=== PATIENT | male | born 1930 | race Caucasian/White ===

== ENCOUNTER 2018-04-08 09:07 | Emergency (ER) | payer MEDICARE ==
--- OUTSIDE RECORDS SUMMARY | 2018-04-08 09:23 | XMS REPORT ---
:1930 External Reference #:[id number] Author Organization Sincere Metcalf M.D. Address [address] [place] [address] Phone [phone] Care Team Providers Name Role Phone Sincere Metcalf M.D. Care Team Information Alligator Hunter Unavailable Payers Type Date Identification Numbers Payment Provider Subscriber Medicare Primary Effective: Policy Number: Medicare - NGS Tyler Griggs 1995 [id number] Group Name: Medicare [address] PayID: [id number] [place] [address] Medigap Part B Policy Number: [id number] 11 [facility] Danielle Griggs Group Name: [facility] [address] PayID: [id number] [place] [address] Medigap Part B Group Name: Medicare Medicare - [facility] Danielle Griggs PayID: [id number] [address] [place] [address] Advance Directives Type Date Description Status Comment Other Directive 07/21/2014 Advance Directives Current and Verified Problems Date Description Provider Status Onset: 08/28/2011 Atrial fibrillation Ysabel Horton PA Active Onset: 08/28/2011 Spinal stenosis of lumbar region Ysabel Horton PA Active Onset: 08/28/2011 Labyrinthitis Ysabel Horton PA Active Onset: 08/28/2011 Gout Ysabel Horton PA Active Onset: 08/28/2011 Hyperlipidemia Ysabel Horton PA Active Family History Date Family Member(s) Problem(s) Comments General Chronic Obstructive Pulmonary Disease (COPD) General Congestive Heart Failure mother Social History Type Date Description Comments Marital Status Legal Status: Marital Status Legal Status: Lives With Spouse Lives With Alone Work Status Retired ETOH Use Occasionally consumes alcohol Smoking 09/24/2017 Patient is a former smoker Daily Caffeine Rarely Allergies, Adverse Reactions, Alerts Date Description Reaction Status Severity Comments 08/28/2011 Aleve active 08/28/2011 Latex active 10/13/2012 Velcro active Medications Medication Date Status Form Strength Qnty SIG Indications Ordering Provider Levofloxacin 03/31/ Active Tablets 750mg 14tabs one pill L03.90 2017 daily Isidro dawn M.D. Bacitracin 02/24/ Active Ointment 500Unit/GM 30gm use twice Sincere (External) 2017 a day on Felix wound Molly dawn Clotrimazole 11/16/ Active Cream 1% 56gm use three Sincere Anti-Fungal 2018 times a Isidro dawn M.D. Tramadol HCL 10/08/ Active Tablets 50mg 30tabs 2 by M79.1 Sincere 2017 mouth in [facility] the Molly dawn morning with 1 tylenol Spironolactone 09/07/ Active Tablets 100mg 180tab 1 or two R60.0 Sincere 2014 s by by Isidro dawn M.D. every day Colace 04/12/ Active Capsules 100mg 60caps 1 by Sincere 2013 mouth Felix twice a sBogdanDLaisha day Flaxseed Oil 04/12/ Active Capsules 1000mg 90caps 1 daily Sincere 2013 at supper Isidro dawn M.D. Glucosamine 04/12/ Active Capsules 1500Com Sincere Chondroitin 1500 2013 Isidro Complex Maximum Molly dawn Strength Ocuvite Adult 04/12/ Active Capsules Sincere 50+ 2013 Isidro dawn M.D. Xarelto 01/09/ Active Tablets 20mg 30tabs 1 by V58.61 Sincere 2013 mouth Felix every day Molly dawn Atorvastatin 03/28/ Active Tablets 40mg 90tabs take 1 Sincere Calcium 2012 tablet by Isidro dawn M.D. every evening Vitamin D-3 04/02/ Active Tablets 1000Unit 90tabs 1 po qd Sincere 2011 Isidro dawn M.D. Allopurinol / Active Tablets 300mg 90tabs take 1 Sincere tablet by Isidro dawn M.D. once daily Gabapentin / Active Capsules 300mg 120cap 1 tab 4 G25.0 Sincere 0000 s times a Felix day s, M.D. M54.9 M54.17 Primidone Active Tablets 50mg 180tabs take 1 G25.0 Sincere tablet Metcalf, twice a M.D. day Celebrex Active Capsules 200mg 180caps take 1 Sincere capsule Metcalf, by mouth M.D. twice daily with food Cephalexin 02/19/2018 - Hx Tablets 500mg 40tabs 1 by L03.11 Sincere 03/22/2018 mouth 5 Metcalf, four M.D. times a day Clotrimazole 10/27/2016 - Hx Cream 1% 60gm use 3 B35.6 Sincere 09/24/2017 times a Metcalf, day M.D. Amoxicillin 09/23/2016 - Hx Tablets 875mg 20tabs 1 by J02.9 Sincere 09/24/2017 mouth Metcalf, twice a M.D. day Cephalexin 08/06/2016 - Hx Capsules 500mg 30caps 1 by L89.60 Sincere 09/23/2016 mouth 2 Metcalf, three M.D. times a day Silver 08/06/2016 - Hx Cream 1% 50gm use daily L89.60 Sincere Sulfadiazine 09/23/2016 on the 2 Metcalf, wound M.D. Silvadene 10/11/2015 - Hx Cream 1% 1tube use on S90.51 Sincere 09/24/2017 wound 2A Metcalf, daily M.D. Lotrisone 05/24/2015 - Hx Cream 1-0.0 60gm use three 112.3 Sincere 09/07/2015 5% times a Metcalf, day for 2 M.D. weeks Vicodin ES 01/18/2015 - Hx Tablets 7.5-3 40tabs 1 tab by 682.3 Sincere 09/07/2015 00mg mouth Metcalf, every day M.D. q4-6h prn pain Debrox 05/17/2014 - Hx Solution 6.5% 30ml 5 drops 380.4 Sincere 05/26/2014 twice a Metcalf, day x 4 M.D. days in each ear Septra DS 01/18/2014 - Hx Tablets 800-1 20tabs 1 by 682.9 Sincere 02/03/2014 60mg mouth Metcalf, twice a M.D. day Amoxicillin/Clav 01/09/2014 - Hx Tablets 875-1 20tabs 1 by 682.9 Sincere ulanate 01/27/2014 25mg mouth Metcalf, Potassium twice a M.D. day Furosemide 10/13/2012 - Hx Tablets 20mg 30tabs 1 by R60.0 Sincere 09/07/2015 mouth Metcalf, every day M.D. as needed Viagra 04/02/2012 - Hx Tablets 100mg 8tabs take as Sincere 09/24/2017 directed Molly Metcalf Viagra 04/02/2012 - Hx Tablets 100mg 8tabs take as Sincere 09/24/2017 chelsie Metcalf M.D. Pradaxa 03/19/2012 - Hx Capsules 150mg 180caps 1 tab by Sincere 01/09/2014 mouth Metcafl, twice a M.D. day Vicodin 03/19/2012 - Hx Tablets 5-500 30tabs 1 tab by Chrissy2.3 Sincere 01/18/2015 mg mouth Metcalf, every day M.D. q4-6h prn pain Cephalexin 03/19/2012 - Hx Tablets 500mg 40tabs 1 po qid 682.3 Sincere 06/19/2013 Molly Metcalf Warfarin Sodium - Hx Tablets 5mg Unknown 03/19/2012 Spironolactone - Hx Tablets 25mg Unknown 12/11/2014 Colcrys - Hx Tablets 0.6mg 120tabs 1 tab by Sincere 02/11/2016 rene Metcalf, four M.D. times a day as needed Allopurinol - Hx Tablets 100mg Unknown 03/19/2012 Ketoconazole - Hx Cream 2% Unknown 09/24/2017 Propranolol HCL - Hx Tablets 20mg 270tabs take 1 Sincere 05/24/2015 tablet by Dixon mouth M.DLaisha three times a day Lipitor - Hx Tablets 40mg 30tabs one q Sincere 09/24/2017 evening Molly Metcalf Atorvastatin - Hx Tablets 40mg Unknown Calcium 09/24/2017 Cephalexin - Hx Capsules 500mg take 1 Unknown 09/24/2017 capsule twice a day Medications Administered in Office Medication Date Status Form Strength Qnty SIG Indications Ordering Provider Inj. Ceftriaxone 03/31/ Administered Injection Wolak, Sodium Per 250MG 2017 MEGHAN Grady Rocephin Inj. Ceftriaxone 01/27/ Administered Injection Wolak, Sodium Per 250MG 2013 MEGHAN Gradyephin Inj. Ceftriaxone 01/18/ Administered Injection Wolak, Sodium Per 250MG 2013 MEGHAN Grady Rocephin Inj. Ceftriaxone 08/28/ Administered Injection Wolak, Sodium Per 250MG 2007 MEGHAN Grady Rocephin Injection 08/28/ Administered Injection Wolak, Administration 2007 MEGHAN Grady Therapeutic, Proph,Or Diagnosti Subcu/Mu Immunizations CPT Code Status Date Vaccine Reaction Lot # [id number] Given 06/17/2017 Flu High Dose Flu HD syr Vaccine [id number] 13267 Given 06/09/2016 Flu High Dose Vaccine 37251 Given 07/17/2015 Prevnar 13 risk & benefits Prevnar 13 [id number] discussed 72693 Given 05/24/2015 Flu High Dose Hi/dose/flu Vaccine [id number] 63096 Given 05/26/2014 Flu High Dose High/do/Flu Vaccine [id number] 35241 Given 05/17/2014 Tdap Vaccine over 7 yrs old 93726 Given 06/09/2013 Flu High Dose Vaccine 88919 Given 06/09/2013 Flu High Dose High doseflu Vaccine [id number] 45706 Given 03/19/2012 Pneumovax [id number] 59370 Given 06/21/2009 Flu Triv Old Code Vital Signs Date Vital Result Comment 03/31/2018 Weight 250.00 lb BP Systolic 104 mmHg BP Diastolic 68 mmHg Body Temperature 98.9 F 03/22/2018 Weight 248.00 lb BP Systolic 106 mmHg BP Diastolic 62 mmHg 02/24/2018 Weight 253.00 lb BP Systolic 132 mmHg BP Diastolic 76 mmHg Body Temperature 97.3 F Respiratory Rate 16 /min 02/19/2018 Weight 253.00 lb BP Systolic 122 mmHg BP Diastolic 62 mmHg Body Temperature 98.7 F 11/16/2017 Weight 254.00 lb BP Systolic 138 mmHg BP Diastolic 80 mmHg 10/08/2017 Weight 260.00 lb heavy boots BP Systolic 110 mmHg BP Diastolic 62 mmHg 09/24/2017 Weight 260.00 lb BP Systolic 112 mmHg BP Diastolic 64 mmHg 06/17/2017 Weight 265.00 lb BP Systolic 122 mmHg BP Diastolic 72 mmHg Height 71 inches 5'11" Heart Rate 60 /min Respiratory Rate 16 /min BMI (Body Mass Index) 37.0 kg/m2 10/27/2016 Weight 281.00 lb BP Systolic 138 mmHg BP Diastolic 70 mmHg 09/23/2016 Weight 287.00 lb BP Systolic 134 mmHg BP Diastolic 80 mmHg Body Temperature 99.4 F 08/13/2016 BP Systolic 100 mmHg BP Diastolic 68 mmHg 08/06/2016 Weight 285.00 lb BP Systolic 100 mmHg BP Diastolic 66 mmHg 07/24/2016 Weight 285.00 lb BP Systolic 100 mmHg BP Diastolic 62 mmHg 06/09/2016 Weight 285.00 lb BP Systolic 140 mmHg BP Diastolic 68 mmHg 05/28/2016 Weight 285.00 lb BP Systolic 118 mmHg BP Diastolic 58 mmHg Height 72.55 inches 6'0.55" Heart Rate 64 /min Body Temperature 98.2 F O2 % BldC Oximetry 96 % BMI (Body Mass Index) 38.1 kg/m2 05/08/2016 Weight 282.00 lb BP Systolic 116 mmHg BP Diastolic 74 mmHg 05/01/2016 Weight 284.00 lb BP Systolic 110 mmHg BP Diastolic 62 mmHg 04/17/2016 Weight 282.00 lb BP Systolic 102 mmHg BP Diastolic 58 mmHg Body Temperature 99.0 F 02/11/2016 Weight 289.00 lb BP Systolic 116 mmHg BP Diastolic 76 mmHg 11/19/2015 Weight 291.00 lb BP Systolic 118 mmHg BP Diastolic 82 mmHg 10/29/2015 Weight 291.50 lb BP Systolic 110 mmHg BP Diastolic 64 mmHg 10/11/2015 Weight 291.00 lb BP Systolic 98 mmHg BP Diastolic 70 mmHg 09/07/2015 Weight 294.00 lb BP Systolic 102 mmHg BP Diastolic 62 mmHg 08/15/2015 Weight 297.00 lb BP Systolic 128 mmHg BP Diastolic 78 mmHg 05/24/2015 Weight 300.00 lb BP Systolic 100 mmHg BP Diastolic 60 mmHg Height 71 inches 5'11" Heart Rate 68 /min Body Temperature 98.4 F Respiratory Rate 16 /min BMI (Body Mass Index) 41.8 kg/m2 02/19/2015 Weight 314.50 lb BP Systolic 140 mmHg BP Diastolic 82 mmHg 01/18/2015 Weight 311.00 lb BP Systolic 124 mmHg BP Diastolic 74 mmHg 01/01/2015 Weight 311.50 lb BP Systolic 122 mmHg BP Diastolic 72 mmHg 12/11/2014 Weight 309.50 lb BP Systolic 114 mmHg BP Diastolic 80 mmHg 08/31/2014 Weight 307.50 lb BP Systolic 138 mmHg BP Diastolic 72 mmHg 06/01/2014 Weight 307.00 lb BP Systolic 118 mmHg BP Diastolic 76 mmHg 05/26/2014 Weight 305.00 lb BP Systolic 120 mmHg BP Diastolic 78 mmHg 05/17/2014 Weight 305.50 lb BP Systolic 102 mmHg BP Diastolic 68 mmHg Height 71.25 inches 5'11.25" Heart Rate 64 /min Body Temperature 98.2 F Respiratory Rate 16 /min BMI (Body Mass Index) 42.3 kg/m2 05/04/2014 Weight 312.00 lb BP Systolic 120 mmHg BP Diastolic 74 mmHg 04/12/2014 Weight 306.00 lb BP Systolic 106 mmHg BP Diastolic 66 mmHg 01/27/2014 Weight 307.00 lb BP Systolic 124 mmHg BP Diastolic 78 mmHg Body Temperature 98.8 F 01/18/2014 Weight 312.00 lb BP Systolic 124 mmHg BP Diastolic 70 mmHg Body Temperature 98.9 F 01/09/2014 Weight 309.00 lb BP Systolic 120 mmHg BP Diastolic 70 mmHg 01/02/2014 Weight 305.00 lb BP Systolic 124 mmHg BP Diastolic 60 mmHg Body Temperature 99.0 F 10/13/2013 Weight 303.50 lb BP Systolic 108 mmHg BP Diastolic 68 mmHg 05/16/2013 Weight 302.50 lb BP Systolic 100 mmHg BP Diastolic 60 mmHg Height 71.25 inches 5'11.25" Heart Rate 60 /min Body Temperature 97.6 F Respiratory Rate 16 /min BMI (Body Mass Index) 41.9 kg/m2 10/13/2012 Weight 315.00 lb BP Systolic 118 mmHg BP Diastolic 64 mmHg Height 72 inches 6'0" Body Temperature 98.0 F Respiratory Rate 16 /min BMI (Body Mass Index) 42.7 kg/m2 04/02/2012 Weight 308.00 lb BP Systolic 100 mmHg BP Diastolic 60 mmHg 03/19/2012 Weight 303.00 lb BP Systolic 118 mmHg BP Diastolic 76 mmHg 08/28/2011 Weight 304.00 lb BP Systolic 108 mmHg BP Diastolic 64 mmHg Results Test Date Test Result H/L Range Note Basic Metabolic Panel 03/10/2018 Glucose 101 mg/dL 74-106 1 BUN 16 mg/dL 7-18 1 Creatinine 0.9 mg/dL 0.6-1.3 1 Glom Filtration Rate, Estimate >60 mL/min >60 1 If >60 mL/min >60 1, 2 BUN/Creat 17.7 ratio 1 Sodium 140 mmol/L 136-145 1 Potassium 4.3 mmol/L 3.5-5.1 1 Chloride 108 mmol/L High 98-107 1 Carbon Dioxide 26 mmol/L 21-32 1 Anion Gap 6 mEq/L Low 8-16 1 Calcium 8.1 mg/dL Low 8.5-10.1 1 CBS W/Automated Diff 03/10/2018 White Blood Count 5.2 K/uL 3.4-10.5 1 Red Blood Count 3.44 M/uL Low 4.20-5.80 1 Hemoglobin 12.7 gm/dL Low 12.8-17.0 1 Hematocrit 38.1 % 38.0-48.0 1 Mean Cell Volume 110.8 fl High 80.0-96.0 1 Mean Corpuscular HGB 36.9 pg High 27.0-33.0 1 Mean Corpuscular HGB Conc 33.3 g/dL 31.7-36.0 1 Platelet Count 146 K/uL Low 155-360 1 Red Cell Distri Width SD 52.0 fl High 36-51 1 Red Cell Distri Width %CV 13.3 % 11.6-15.8 1 Mean Platelet Volume 9.6 fL 6.6-10.6 1 Neut% 66.3 % 33.0-73.0 1 Lymph % 18.4 % Low 20.0-42.0 1 [place] % 12.8 % High 0.0-10.0 1 Eo% 2.3 % 0.0-6.6 1 Bas% 0.2 % 0.0-1.1 1 Neut# 3.46 K/uL 1.8-7.0 1 Lymph # 0.96 K/uL Low 1.0-4.0 1 [place] # 0.67 K/uL 0.0-0.8 1 Eos # 0.12 K/uL 0.0-0.5 1 Baso # 0.01 K/uL 0.0-0.1 1 Slide Review 03/10/2018 Slide Review . 1, 3 CBS W/Automated Diff 03/09/2018 White Blood Count 6.2 K/uL 3.4-10.5 1 Red Blood Count 3.30 M/uL Low 4.20-5.80 1 Hemoglobin 12.1 gm/dL Low 12.8-17.0 1 Hematocrit 36.6 % Low 38.0-48.0 1 Mean Cell Volume 110.9 fl High 80.0-96.0 1, 4 Mean Corpuscular HGB 36.7 pg High 27.0-33.0 1 Mean Corpuscular HGB Conc 33.1 g/dL 31.7-36.0 1 Platelet Count 147 K/uL Low 155-360 1 Red Cell Distri Width SD 51.7 fl High 36-51 1 Red Cell Distri Width %CV 13.2 % 11.6-15.8 1 Mean Platelet Volume 9.9 fL 6.6-10.6 1 Neut% 68.5 % 33.0-73.0 1 Lymph % 17.0 % Low 20.0-42.0 1 [place] % 12.4 % High 0.0-10.0 1 Eo% 1.8 % 0.0-6.6 1 Bas% 0.3 % 0.0-1.1 1 Neut# 4.24 K/uL 1.8-7.0 1 Lymph # 1.05 K/uL 1.0-4.0 1 [place] # 0.77 K/uL 0.0-0.8 1 Eos # 0.11 K/uL 0.0-0.5 1 Baso # 0.02 K/uL 0.0-0.1 1 Path Review: 03/09/2018 Path Review: INDICATED,SLIDE <SEE NOTE> 1, 5 Differential-WBC 03/09/2018 Total Cells Counted 100 #CELLS 1 Band% 3 % 0-8 1 Neutrophils% 66 % 33-73 1 Lymph% 21 % 20-42 1 Monocyte% 9 % 0-10 1 Eosinophil% 1 % 0-5 1 Platelet Estimate NORMAL 1 Hypochromia 0-1+ 1 Anisocytosis 1+ 1 Macrocytosis 2+ 1 Rouleaux 1+ 1 Differential Comment FEW LRG PLTS SEE <SEE NOTE> 1, 6 Basic Metabolic Panel 03/09/2018 Glucose 98 mg/dL 74-106 1 BUN 15 mg/dL 7-18 1 Creatinine 0.8 mg/dL 0.6-1.3 1 Glom Filtration Rate, Estimate >60 mL/min >60 1 If >60 mL/min >60 1, 7 BUN/Creat 18.7 ratio 1 Sodium 137 mmol/L 136-145 1 Potassium 4.4 mmol/L 3.5-5.1 1 Chloride 106 mmol/L 98-107 1 Carbon Dioxide 24 mmol/L 21-32 1 Anion Gap 7 mEq/L Low 8-16 1 Calcium 8.1 mg/dL Low 8.5-10.1 1 Glycohemoglobin A1c 03/09/2018 Glycohemoglobin (A1c) 5.8 % 4.2-6.3 1, 8 eAG 120 mg/dL 1 Laboratory test 03/08/2018 C-Reactive Protein,Quant < 2.9 mg/L <3.0 9 finding Blood Culture 03/08/2018 Blood Culture Aerobic NO GROWTH: 10, 11 FINAL <SEE NOTE> Blood Culture Anaerobic NO GROWTH: FINAL <SEE NOTE> 10, 12 Laboratory test finding 03/08/2018 Slide Review . 13, 14 Aot Request 03/08/2018 Aot Request Test(s) added 13, 15 Tests to be added: CRP 13 Blood Culture 03/08/2018 Blood Culture Aerobic NO GROWTH: FINAL <SEE NOTE> 16, 17 Blood Culture Anaerobic NO GROWTH: FINAL <SEE NOTE> 16, 18 Ua RFX Micro & Culture II 03/08/2018 Urine Color YELLOW Yellow 19 Urine Clarity CLEAR Clear 19 Urine Glucose - Dipstick NEGATIVE mg/dL Negative 19 Urine Bilirubin - Dipstick NEGATIVE Negative 19 Urine Ketone NEGATIVE mg/dL Negative 19 Urine Specific [place] <=1.005 Low 1.010-1.030 19 Urine Blood NEGATIVE Negative 19 Urine PH 6.5 6.5-7.5 19 Urine Protein - Dipstick NEGATIVE mg/dL Negative 19 Urine Urobilinogen - Dipstick 0.2 E.U./dL 0.2-1.0 19 Urine Nitrite - Dipstick NEGATIVE Negative 19 Urine Leuk Esterase NEGATIVE Negative 19 Source: URINE, CLEAN CAT <SEE NOTE> 19, 20 Protime 03/08/2018 Protime 17.5 seconds High 12.0-14.4 19 Inr 1.4 High 0.9-1.1 19, 21 Lactic Acid 03/08/2018 Lactic Acid 1.3 mmol/L 0.4-1.9 19 Lab Reflex >2.0 for Sepsis? Y 19 Comprehensive Metabolic Panel 03/08/2018 Glucose 86 mg/dL 74-106 19 BUN 21 mg/dL High 7-18 19 Creatinine 1.0 mg/dL 0.6-1.3 19 Glom Filtration Rate, Estimate >60 mL/min >60 19 If >60 mL/min >60 19, 22 BUN/Creat 21.0 ratio 19 Sodium 136 mmol/L 136-145 19 Potassium 4.5 mmol/L 3.5-5.1 19 Chloride 104 mmol/L 98-107 19 Carbon Dioxide 24 mmol/L 21-32 19 Anion Gap 8 mEq/L 8-16 19 Calcium 8.6 mg/dL 8.5-10.1 19 Total Protein 7.2 g/dL 6.4-8.2 19 Albumin 3.5 g/dL 3.4-5.0 19 Globulin 3.7 g/dL 1.9-4.3 19 Alb/Glob 0.9 ratio 19 Bilirubin,Total 0.6 mg/dL 0.2-1.0 19 Sgot/Ast 28 U/L 15-37 19 SGPT/Alt 37 U/L 12-78 19 Alkaline Phosphatase 152 U/L High 45-117 19 Laboratory test finding 03/08/2018 Lipase 177 U/L 56-289 19 CK 69 U/L 39-308 19 NT-proBNP 840.0 pg/mL High <450 19 Troponin-I < 0.015 ng/mL 19, 23 CBS W/Automated Diff 03/08/2018 White Blood Count 6.9 K/uL 3.4-10.5 19 Red Blood Count 3.40 M/uL Low 4.20-5.80 19 Hemoglobin 12.6 gm/dL Low 12.8-17.0 19 Hematocrit 37.4 % Low 38.0-48.0 19 Mean Cell Volume 110.0 fl High 80.0-96.0 19, 24 Mean Corpuscular HGB 37.1 pg High 27.0-33.0 19 Mean Corpuscular HGB Conc 33.7 g/dL 31.7-36.0 19 Platelet Count 148 K/uL Low 155-360 19 Red Cell Distri Width SD 52.4 fl High 36-51 19 Red Cell Distri Width %CV 13.4 % 11.6-15.8 19 Mean Platelet Volume 9.8 fL 6.6-10.6 19 Neut% 72.8 % 33.0-73.0 19 Lymph % 13.3 % Low 20.0-42.0 19 [place] % 12.8 % High 0.0-10.0 19 Eo% 1.0 % 0.0-6.6 19 Bas% 0.1 % 0.0-1.1 19 Neut# 4.99 K/uL 1.8-7.0 19 Lymph # 0.91 K/uL Low 1.0-4.0 19 [place] # 0.88 K/uL High 0.0-0.8 19 Eos # 0.07 K/uL 0.0-0.5 19 Baso # 0.01 K/uL 0.0-0.1 19 Comprehensive Metabolic Panel 06/23/2017 Glucose 124 mg/dL High 74-106 25 BUN 25 mg/dL High 7-18 25 Creatinine 1.1 mg/dL 0.6-1.3 25 Glom Filtration Rate, Estimate >60 mL/min >60 25 If >60 mL/min >60 25, 26 BUN/Creat 22.7 ratio 25 Sodium 140 mmol/L 136-145 25 Potassium 5.0 mmol/L 3.5-5.1 25 Chloride 108 mmol/L High 98-107 25 Carbon Dioxide 28 mmol/L 21-32 25 Anion Gap 4 mEq/L Low 8-16 25 Calcium 8.4 mg/dL Low 8.5-10.1 25 Total Protein 6.9 g/dL 6.4-8.2 25 Albumin 3.4 g/dL 3.4-5.0 25 Globulin 3.5 g/dL 1.9-4.3 25 Alb/Glob 1.0 ratio 25 Bilirubin,Total 0.7 mg/dL 0.2-1.0 25 Sgot/Ast 19 U/L 15-37 25 SGPT/Alt 29 U/L 12-78 25 Alkaline Phosphatase 114 U/L 45-117 25 Microalbumin,Random Urine 06/23/2017 Microalbumin,Urine < 5.0 mg/L < 20.0 25 Laboratory test finding 06/23/2017 TSH Reflex FT4 and/or 1.75 0.30-4.20 25 FT3 uIU/mL Vitamin D,25-Hydroxy 42.6 ng/mL 30.0-100.0 25, 27 CBC 06/23/2017 White Blood Count 4.8 K/uL 3.4-10.5 25 Red Blood Count 3.50 M/uL Low 4.20-5.80 25 Hemoglobin 13.0 gm/dL 12.8-17.0 25 Hematocrit 38.4 % 38.0-48.0 25 Mean Cell Volume 109.7 fl High 80.0-96.0 25 Mean Corpuscular HGB 37.1 pg High 27.0-33.0 25 Mean Corpuscular HGB Conc 33.9 g/dL 31.7-36.0 25 Platelet Count 121 K/uL Low 150-400 25 Red Cell Distri Width %CV 13.6 % 11.6-15.8 25 Mean Platelet Volume 10.1 fL 6.6-10.6 25 LDL Cholesterol Profile 06/23/2017 Cholesterol 116 mg/dL <200 25, 28 Triglycerides 98 mg/dL <150 25, 29 HDL Cholesterol 55 mg/dL >40 25, 30 LDL-Cholesterol 41 mg/dL < 100 25, 31 Glycohemoglobin A1c 10/29/2016 Glycohemoglobin (A1c) 6.1 % 4.2-6.3 32, 33 eAG 128 mg/dL 32 Comprehensive Metabolic Panel 10/29/2016 Glucose 137 mg/dL High 74-106 32 BUN 23 mg/dL High 7-18 32 Creatinine 1.1 mg/dL 0.6-1.3 32 Glom Filtration Rate, Estimate >60 mL/min >60 32 If >60 mL/min >60 32, 34 BUN/Creat 20.9 ratio 32 Sodium 138 mmol/L 136-145 32 Potassium 4.9 mmol/L 3.5-5.1 32 Chloride 104 mmol/L 98-107 32 Carbon Dioxide 26 mmol/L 21-32 32 Anion Gap 8 mEq/L 8-16 32 Calcium 8.5 mg/dL 8.5-10.1 32 Total Protein 7.4 g/dL 6.4-8.2 32 Albumin 3.5 g/dL 3.4-5.0 32 Globulin 3.9 g/dL 1.9-4.3 32 Alb/Glob 0.9 ratio 32 Bilirubin,Total 0.6 mg/dL 0.2-1.0 32 Sgot/Ast 26 U/L 15-37 32 SGPT/Alt 41 U/L 12-78 32 Alkaline Phosphatase 117 U/L 45-117 32 Microalbumin,Random Urine 10/29/2016 Microalbumin,Urine < 5.0 mg/L < 20.0 32 Laboratory test finding 09/23/2016 Throat Culture SEE RESULT 35, 36 BELOW Prostate Specific Antigen 07/07/2016 PSA ([place]oci) 12.90 ng/mL < 4.0 37, 38 @[facility] Pat Id: [id number] @[facility] Req #: [id number] 37 CBC 06/06/2016 White Blood Count 5.1 K/uL 3.4-10.5 39 Red Blood Count 3.62 M/uL Low 4.20-5.80 39 Hemoglobin 13.0 gm/dL 12.8-17.0 39 Hematocrit 39.1 % 38.0-48.0 39 Mean Cell Volume 108.0 fl High 80.0-96.0 39 Mean Corpuscular HGB 35.9 pg High 27.0-33.0 39 Mean Corpuscular HGB Conc 33.2 g/dL 31.7-36.0 39 Platelet Count 121 K/uL Low 150-400 39 Red Cell Distri Width %CV 13.7 % 11.6-15.8 39 Mean Platelet Volume 10.3 fL 6.6-10.6 39 @[facility] Pat Id: [id number] 39 @[facility] Req #: [id number] 39 Basic Metabolic Panel 06/06/2016 Glucose 128 mg/dL High 74-106 39 BUN 19 mg/dL High 7-18 39 Creatinine 0.9 mg/dL 0.6-1.3 39 Glom Filtration Rate, Estimate >60 mL/min >60 39 If >60 mL/min >60 39, 40 BUN/Creat 21.1 ratio 39 Sodium 140 mmol/L 136-145 39 Potassium 4.1 mmol/L 3.5-5.1 39 Chloride 106 mmol/L 98-107 39 Carbon Dioxide 28 mmol/L 21-32 39 Anion Gap 6 mEq/L Low 8-16 39 Calcium 8.0 mg/dL Low 8.5-10.1 39 @[facility] Pat Id: [id number] 39 @[facility] Req #: [id number] 39 Is Patient Fasting? Fasting 39 LDL Cholesterol Profile 06/06/2016 Cholesterol 142 mg/dL <200 39, 41 Triglycerides 111 mg/dL <150 39, 42 HDL Cholesterol 51 mg/dL >40 39, 43 LDL-Cholesterol 69 mg/dL < 100 39, 44 @[facility] Pat Id: [id number] 39 @[facility] Req #: [id number] 39 Is Patient Fasting? Fasting 39 Prostate Specific Antigen 06/06/2016 PSA ([place]oci) 13.10 ng/mL < 4.0 39, 45 @[facility] Id: [id number] 39 @[facility] Req #: [id number] 39 Is Patient Fasting? Fasting 39 Laboratory test finding 02/12/2016 Calcium,Ionized 4.9 mg/dL 4.5-5.6 46 Uric Acid 4.5 mg/dL 3.5-7.2 Glycohemoglobin A1c 02/12/2016 Glycohemoglobin (A1c) 6.1 % 4.2-6.3 47 eAG 128 mg/dL Basic Metabolic Panel 02/12/2016 Glucose 123 mg/dL High 74-106 BUN 18 mg/dL 7-18 Creatinine 0.9 mg/dL 0.6-1.3 Glom Filtration Rate, Estimate >60 mL/min >60 If >60 mL/min >60 48 BUN/Creat 20.0 ratio Sodium 140 mmol/L 136-145 Potassium 4.5 mmol/L 3.5-5.1 Chloride 105 mmol/L 98-107 Carbon Dioxide 28 mmol/L 21-32 Anion Gap 7 mEq/L Low 8-16 Calcium 8.2 mg/dL Low 8.5-10.1 Laboratory test finding 11/24/2015 Calcium,Ionized 5.0 mg/dL 4.5-5.6 49 Urine Screen 11/21/2015 Urine Color YELLOW Yellow Urine Clarity CLEAR Clear Urine Glucose - Dipstick NEGATIVE mg/dL Negative Urine Bilirubin - Dipstick NEGATIVE Negative Urine Ketone NEGATIVE mg/dL Negative Urine Specific [place] 1.010 1.010-1.030 Urine Blood NEGATIVE Negative Urine PH 6.0 Low 6.5-7.5 Urine Protein - Dipstick NEGATIVE mg/dL Negative Urine Urobilinogen - Dipstick 0.2 E.U./dL 0.2-1.0 Urine Nitrite - Dipstick NEGATIVE Negative Urine Leuk Esterase NEGATIVE Negative Comprehensive Metabolic Panel 11/21/2015 Basic Metabolic Panel <pending> Glucose 113 mg/dL High 74-106 BUN 24 mg/dL High 7-18 Creatinine 0.9 mg/dL 0.6-1.3 Glom Filtration Rate, Estimate >60 mL/min >60 If >60 mL/min >60 50 BUN/Creat 26.6 ratio Sodium 139 mmol/L 136-145 Potassium 4.4 mmol/L 3.5-5.1 Chloride 106 mmol/L 98-107 Carbon Dioxide 28 mmol/L 21-32 Anion Gap 5 mEq/L Low 8-16 Calcium 7.7 mg/dL Low 8.5-10.1 Total Protein 7.2 g/dL 6.4-8.2 Albumin 3.7 g/dL 3.4-5.0 Globulin 3.5 g/dL 1.9-4.3 Alb/Glob 1.1 ratio Bilirubin,Total 0.5 mg/dL 0.2-1.0 Sgot/Ast 26 U/L 15-37 SGPT/Alt 46 U/L 12-78 Alkaline Phosphatase 114 U/L 45-117 Laboratory test finding 11/21/2015 Lipase 115 U/L 73-393 CBC 11/21/2015 White Blood Count 5.3 K/uL 3.4-10.5 Red Blood Count 3.83 M/uL Low 4.20-5.80 Hemoglobin 14.2 gm/dL 12.8-17.0 Hematocrit 39.9 % 38.0-48.0 Mean Cell Volume 104.2 fl High 80.0-96.0 Mean Corpuscular HGB 37.1 pg High 27.0-33.0 Mean Corpuscular HGB Conc 35.6 g/dL 31.7-36.0 Platelet Count 118 K/uL Low 150-400 Red Cell Distri Width %CV 14.0 % 11.6-15.8 Mean Platelet Volume 10.7 fL High 6.6-10.6 Basic Metabolic Panel 11/19/2015 Sodium 138 mmol/L 133-145 Potassium 4.6 mmol/L 3.5-5.0 Chloride 104 mmol/L 101-111 Co2 Carbon Dioxide 27 mmol/L 22-32 Anion Gap 7 mmol/L 2-11 Glucose 117 mg/dL High 70-100 Blood Urea Nitrogen 21 mg/dL 6-24 Creatinine 0.91 mg/dL 0.67-1.17 BUN/Creatinine Ratio 23.1 High 8-20 Calcium 8.9 mg/dL 8.6-10.3 Egfr Non- 79.0 >60 Egfr 101.6 >60 51 Laboratory test finding 11/19/2015 Magnesium 2.0 mg/dL 1.9-2.7 Laboratory test finding 08/17/2015 Uric Acid 4.4 mg/dL 3.5-7.2 CBS W/Automated Diff 08/17/2015 White Blood Count 6.6 K/uL 3.4-10.5 Red Blood Count 3.92 M/uL Low 4.20-5.80 Hemoglobin 14.4 gm/dL 12.8-17.0 Hematocrit 41.5 % 38.0-48.0 Mean Cell Volume 105.9 fl High 80.0-96.0 Mean Corpuscular HGB 36.7 pg High 27.0-33.0 Mean Corpuscular HGB Conc 34.7 g/dL 31.7-36.0 Platelet Count 120 K/uL Low 150-400 Red Cell Distri Width SD 51.2 fl High 36-51 Red Cell Distri Width %CV 13.5 % 11.6-15.8 Mean Platelet Volume 10.8 fL High 6.6-10.6 Neut% 62.8 % 33.0-73.0 Lymph % 22.4 % 17.0-56.0 [place] % 12.8 % High 0.0-10.0 Eo% 1.7 % 0.0-5.0 Bas% 0.3 % 0.1-1.0 Neut# 4.13 K/uL 1.8-7.0 Lymph # 1.47 K/uL Low 1.8-7.0 [place] # 0.84 K/uL High 0.0-0.8 Eos # 0.11 K/uL 0.0-0.5 Baso # 0.02 K/uL Low 0.1-0.2 Laboratory test finding 08/17/2015 Sedimentation Rate 7 mm/hr 0-20 Comprehensive Metabolic Panel 12/05/2014 Glucose 132 mg/dL High 74-106 BUN 15 mg/dL 7-18 Creatinine 0.9 mg/dL 0.6-1.3 Glom Filtration Rate, Estimate >60 mL/min >60 If >60 mL/min >60 52 BUN/Creat 16.6 ratio Sodium 141 mmol/L 136-145 Potassium 4.6 mmol/L 3.5-5.1 Chloride 105 mmol/L 98-107 Carbon Dioxide 31 mmol/L 21-32 Anion Gap 5 mEq/L Low 8-16 Calcium 8.5 mg/dL 8.5-10.1 Total Protein 7.0 g/dL 6.4-8.2 Albumin 3.6 g/dL 3.4-5.0 Globulin 3.4 g/dL 1.9-4.3 Alb/Glob 1.1 ratio Bilirubin,Total 0.6 mg/dL 0.2-1.0 Sgot/Ast 28 U/L 15-37 SGPT/Alt 41 U/L 12-78 Alkaline Phosphatase 126 U/L High 45-117 Laboratory test finding 12/05/2014 Troponin-I < 0.015 ng/mL 53 CBC W/Automated Diff 12/05/2014 White Blood Count 6.7 K/uL 3.4-10.5 Red Blood Count 3.97 M/uL Low 4.20-5.80 Hemoglobin 14.1 gm/dL 12.8-17.0 Hematocrit 42.4 % 38.0-48.0 Mean Cell Volume 106.8 fl High 80.0-96.0 Mean Corpuscular HGB 35.5 pg High 27.0-33.0 Mean Corpuscular HGB Conc 33.3 g/dL 31.7-36.0 Platelet Count 140 K/uL Low 150-400 Red Cell Distri Width SD 51.9 fl High 36-51 Red Cell Distri Width %CV 13.7 % 11.6-15.8 Mean Platelet Volume 10.5 fL 6.6-10.6 Neut# 4.24 K/uL 1.8-7.0 Lymph # 1.54 K/uL Low 1.8-7.0 [place] # 0.77 K/uL 0.0-0.8 Eos # 0.09 K/uL 0.0-0.5 Baso # 0.02 K/uL Low 0.1-0.2 Differential-WBC Confirm 12/05/2014 Total Cells Counted 100 #CELLS Band% 3 % 0-8 Neutrophils% 60 % 33-73 Lymph% 25 % 17-56 Atypical Lymph% 2 % 0-7 Monocyte% 10 % 0-10 Platelet Estimate NORMAL Anisocytosis 0-1+ Macrocytosis 2+ Differential Comment See Note 54 Laboratory test finding 12/05/2014 Urine Screen See Note 55 Laboratory test finding 06/01/2014 Skin Biopsy See Note 56 Laboratory test finding 05/04/2014 Sedimentation Rate 17 mm/hr 0-20 Uric Acid 3.9 mg/dL 2.1-7.4 Glycohemoglobin A1c 05/04/2014 Glycohemoglobin (A1c) 6.6 % High 4.8-6.0 57 eAG 143 mg/dL Laboratory test finding 05/04/2014 Deoxycortisol,11 0.04 g/dL . 58 Basic Metabolic Panel 01/31/2014 Glucose 137 mg/dL High 76-115 BUN 15 mg/dL 5-23 Creatinine 0.9 mg/dL 0.5-1.4 Glom Filtration Rate, Estimate >60 mL/min >60 If >60 mL/min >60 59 BUN/Creat 16.6 ratio Sodium 141 mmol/L 136-145 Potassium 4.5 mmol/L 3.5-5.1 Chloride 106 mmol/L 98-107 Carbon Dioxide 27 mEq/L 18-29 Anion Gap 13 mEq/L 8-16 Calcium 8.5 mg/dL 8.5-10.1 CBC/Manual Differential 01/31/2014 White Blood Count 4.8 K/uL 3.4-10.5 Red Blood Count 3.66 M/uL Low 4.20-5.80 Hemoglobin 13.2 gm/dL 12.8-17.0 Hematocrit 39.1 % 38.0-48.0 Mean Cell Volume 106.8 fl High 80.0-96.0 Mean Corpuscular HGB 36.1 pg High 27.0-33.0 Mean Corpuscular HGB Conc 33.8 g/dL 31.7-36.0 Platelet Count 125 K/uL Low 150-400 Red Cell Distri Width %CV 14.1 % 11.6-15.8 Mean Platelet Volume 10.5 fL 6.6-10.6 Total Cells Counted 100 #CELLS Neutrophils% 49 % 33-73 Lymph% 31 % 17-56 Platelet Estimate SLIGHT DECREASE Band% 4 % 0-8 Monocyte% 14 % High 0-10 Basophil% 2 % 0-2 Polychromasia 0-1+ Macrocytosis 1+ Laboratory test finding 01/31/2014 Sedimentation Rate 23 mm/hr High 0-20 Uric Acid 4.0 mg/dL 2.1-7.4 Laboratory test finding 01/02/2014 Urine Culture See Note 60 CBS W/Automated Diff 05/24/2013 White Blood Count 6.3 K/uL 3.4-10.5 Red Blood Count 3.87 M/uL Low 4.20-5.80 Hemoglobin 14.0 gm/dL 12.8-17.0 Hematocrit 40.7 % 38.0-48.0 Mean Cell Volume 105.2 fl High 80.0-96.0 Mean Corpuscular HGB 36.2 pg High 27.0-33.0 Mean Corpuscular HGB Conc 34.4 g/dL 31.7-36.0 Platelet Count 122 K/uL Low 150-400 Red Cell Distri Width SD 52.4 fl High 36-51 Red Cell Distri Width %CV 13.7 % 11.6-15.8 Mean Platelet Volume 10.4 fL 6.6-10.6 Comprehensive Metabolic Panel 05/24/2013 Glucose 136 mg/dL High 76-115 BUN 15 mg/dL 5-23 Creatinine 1.0 mg/dL 0.5-1.4 Glom Filtration Rate, Estimate >60 mL/min >60 If >60 mL/min >60 61 BUN/Creat 15.0 ratio Sodium 141 mmol/L 136-145 Potassium 4.2 mmol/L 3.5-5.1 Chloride 104 mmol/L 98-107 Carbon Dioxide 30 mEq/L High 18-29 Anion Gap 11 mEq/L 8-16 Calcium 8.8 mg/dL 8.5-10.1 Total Protein 7.0 g/dL 6.3-8.0 Albumin 3.5 g/dL 3.5-5.0 Globulin 3.5 g/dL 1.9-4.3 Alb/Glob 1.0 ratio Bilirubin,Total 0.8 mg/dL 0.2-1.2 Sgot/Ast 26 U/L 16-40 SGPT/Alt 38 U/L 30-65 Alkaline Phosphatase 127 U/L 50-136 LDL Cholesterol Profile 05/24/2013 Cholesterol 127 mg/dL 120-200 Triglycerides 91 mg/dL 16-231 HDL Cholesterol 48 mg/dL 29-83 LDL-Cholesterol 61 mg/dL Low 62-185 Liver Function Tests 05/24/2013 Total Protein 7.0 g/dL 6.3-8.0 Albumin 3.5 g/dL 3.5-5.0 Globulin 3.5 g/dL 1.9-4.3 Alb/Glob 1.0 ratio Bilirubin,Total 0.8 mg/dL 0.2-1.2 Bilirubin,Direct 0.2 mg/dL 0.1-0.4 Bilirubin,Indirect 0.6 mg/dL 0.0-0.9 Sgot/Ast 26 U/L 16-40 SGPT/Alt 38 U/L 30-65 Alkaline Phosphatase 127 U/L 50-136 Differential-WBC Confirm 05/24/2013 Total Cells Counted 100 #CELLS Promyelocyte% 1 % High -0 Band% 15 % High 0-8 Neutrophils% 56 % 33-73 Lymph% 16 % Low 17-56 Monocyte% 8 % 0-10 Eosinophil% 4 % 0-5 Platelet Estimate SLIGHT DECREASE Macrocytosis 1+ Comprehensive Metabolic Panel 07/23/2012 Glucose 126 mg/dL High 76-115 BUN 18 mg/dL 5-23 Creatinine 0.9 mg/dL 0.5-1.4 Glom Filtration Rate, Estimate >60 mL/min >60 If >60 mL/min >60 62 BUN/Creat 20.0 ratio Sodium 140 mmol/L 136-145 Potassium 4.2 mmol/L 3.5-5.1 Chloride 106 mmol/L 98-107 Carbon Dioxide 25 mEq/L 18-29 Anion Gap 13 mEq/L 8-16 Calcium 8.4 mg/dL Low 8.5-10.1 Total Protein 7.0 g/dL 6.3-8.0 Albumin 3.5 g/dL 3.5-5.0 Globulin 3.5 g/dL 1.9-4.3 Alb/Glob 1.0 ratio Bilirubin,Total 0.8 mg/dL 0.2-1.2 Sgot/Ast 77 U/L High 16-40 SGPT/Alt 63 U/L 30-65 Alkaline Phosphatase 112 U/L 50-136 Laboratory test finding 07/23/2012 CK 114 U/L 26-190 NT-proBNP 1177.0 pg/mL High <650.0 63 Troponin-I 0.02 ng/mL 0.00-0.50 64 CBS W/Automated Diff 07/23/2012 White Blood Count 6.2 K/uL 3.4-10.5 Red Blood Count 3.60 M/uL Low 4.20-5.80 Hemoglobin 12.8 gm/dL 12.8-17.0 Hematocrit 38.5 % 38.0-48.0 Mean Cell Volume 106.9 fl High 80.0-96.0 Mean Corpuscular HGB 35.6 pg High 27.0-33.0 Mean Corpuscular HGB Conc 33.2 g/dL 31.7-36.0 Platelet Count 112 K/uL Low 150-400 Red Cell Distri Width SD 54.9 fl High 36-51 Red Cell Distri Width %CV 14.4 % 11.6-15.8 Mean Platelet Volume 10.5 fL 6.6-10.6 Differential-WBC Confirm 07/23/2012 Total Cells Counted 100 #CELLS Metamyelocyte% 1 % High -0 Neutrophils% 59 % 33-73 Lymph% 24 % 17-56 Atypical Lymph% 2 % 0-7 Monocyte% 11 % High 0-10 Eosinophil% 2 % 0-5 Basophil% 1 % 0-2 Platelet Estimate SLIGHT DECREASE Anisocytosis 1+ Macrocytosis 0-1+ Rouleaux 0-1+ Comp Metabolic Panel 05/25/2012 Sodium 137 mmol/L 135-145 Potassium 4.4 mmol/L 3.5-5.0 Chloride 101 mmol/L 101-111 Co2 (Carbon Dioxide) 31.0 mmol/L 22-32 Anion Gap 5.0 mmol/L 2-11 65 Glucose 153 mg/dL High 70-100 BUN 14 mg/dL 6-24 Creatinine 0.9 mg/dL 0.50-1.40 One Over Creatinine 1.11 BUN/Creatinine Ratio 15.6 8-20 Calcium 8.6 mg/dL 8.1-9.9 Total Protein 6.0 GM/DL Low 6.2-8.1 Albumin 3.6 GM/DL 3.2-5.2 Globulin 2.4 GM/DL 2-4 Albumin/Globulin Ratio 1.5 1-3 Bilirubin Total 0.8 mg/dL 0.4-1.5 66 Alkaline Phosphatase 101 U/L 39-117 Alt (SGPT) 31 U/L 17-63 Ast (Sgot) 24 U/L 12-42 eGFR Non- 80.8 > 60 eGFR 103.9 > 60 67 Lipid Profile (Trig/Chol/HDL) 05/25/2012 Triglyceride 91 mg/dL 40-200 Cholesterol 122 mg/dL Less Than 200 68 High Density Lipoprotein 43 mg/dL 40-60 69 Cholesterol/HDL Ratio 2.84 AVERAGE 1-4.97 Low Density Lipoprotein 61 mg/dL Less Than 100 70 Laboratory test finding 05/25/2012 Uric Acid 5.6 mg/dL 2.6-7.2 CPK (Creatine Kinase) 93 U/L 0-200 TSH 1.78 MIU/ML 0.34-5.60 Testosterone Total 445.7 ng/dL 175-781 71 CBC Auto Diff 05/25/2012 White Blood Count 5.2 CUMM 4.8-10.8 Red Cell Count 3.60 CUMM Low 4.6-6.2 Hemoglobin 13.3 g/dL Low 14.0-18.0 Hematocrit 38 % Low 42-52 Mean Corpuscular Volume 106 um3 High 80-94 72 Mean Corpuscular Hemoglob 37 pg High 27-31 Mean Corpuscular HGB Cone 35 g/dL 32-36 Redcell Distribution WDTH 14 % 10.5-15 Platelet Count 117 CUMM Low 150-450 Mean Platelet Volume 9.1 um3 7.4-10.4 Gran % 64.3 % 38-83 Lymph % 22.1 % 20-45 Mononuclear % 9.6 % High 1-9 Eosinophil % 3.3 % 0-6 Basophil % 0.7 % 0-2 Abs Lymphs 1.1 1.0-4.8 Abs Mononuclear 0.5 0-0.8 Absolute Neutrophil Count 3.3 1.5-7.7 Abs Eosinophils 0.2 0-0.6 Abs Basophils 0 0-0.2 Laboratory test 05/25/2012 Hemoglobin A1c 6.4 % High Less Than 6.0 73 finding Laboratory test 05/25/2012 Vitamin D, 1,25 25 pg/mL 18-64 74 finding Dihydroxy Vitamin D, 25 Hydroxy 05/25/2012 25-Hydroxy Vitamin <4.0 ng/mL () D2 25-Hydroxy Vitamin D3 29 ng/mL () 25-Hydroxy Vitamin D Total 29 ng/mL () 75 RBC Morphology 05/25/2012 Anisocytosis SLIGHT Macrocytosis SLIGHT CBC W/Automated Diff 03/14/2012 White Blood Count 7.0 K/uL 3.4-10.5 Red Blood Count 4.02 M/uL Low 4.20-5.80 Hemoglobin 14.5 gm/dL 12.8-17.0 Hematocrit 42.8 % 38.0-48.0 Mean Cell Volume 106.5 fl High 80.0-96.0 Mean Corpuscular HGB 36.1 pg High 27.0-33.0 Mean Corpuscular HGB Conc 33.9 g/dL 31.7-36.0 Platelet Count 127 K/uL Low 150-400 Red Cell Distri Width SD 55.6 fl High 36-51 Red Cell Distri Width %CV 14.2 % 11.6-15.8 Mean Platelet Volume 10.2 fL 6.6-10.6 Neut% 65.4 % 33.0-73.0 Lymph % 19.4 % 17.0-56.0 [place] % 12.4 % High 0.0-10.0 Eo% 2.4 % 0.0-5.0 Bas% 0.4 % 0.1-1.0 Neut# 4.59 K/uL 1.8-7.0 Lymph # 1.36 K/uL 1.2-4.0 [place] # 0.87 K/uL High 0.0-0.6 Eos # 0.17 K/uL 0.0-0.5 Baso # 0.03 K/uL Low 0.1-0.2 Laboratory test finding 03/14/2012 Uric Acid 4.5 mg/dL 2.1-7.4 Basic Metabolic Panel 03/14/2012 Glucose 106 mg/dL 76-115 BUN 20 mg/dL 5-23 Creatinine 1.0 mg/dL 0.5-1.4 Glom Filtration Rate, Estimate >60 mL/min >60 If >60 mL/min >60 76 BUN/Creat 20.0 ratio Sodium 140 mmol/L 136-145 Potassium 4.7 mmol/L 3.5-5.1 Chloride 106 mmol/L 98-107 Carbon Dioxide 28 mEq/L 18-29 Anion Gap 11 mEq/L 8-16 Calcium 8.5 mg/dL 8.5-10.1 Urine Screen 09/10/2011 Urine Color STRAW Yellow Urine Clarity CLEAR Clear Urine Glucose - Dipstick NEGATIVE mg/dL Negative Urine Bilirubin - Dipstick NEGATIVE Negative Urine Ketone NEGATIVE mg/dL Negative Urine Specific [place] 1.010 1.010-1.030 Urine Blood NEGATIVE Negative Urine PH 6.5 6.5-7.5 Urine Protein - Dipstick NEGATIVE mg/dL Negative Urine Urobilinogen - Dipstick 0.2 E.U./dL 0.2-1.0 Urine Nitrite - Dipstick NEGATIVE Negative Urine Leuk Esterase NEGATIVE Negative CBC 09/10/2011 White Blood Count 6.9 K/uL 3.4-10.5 Red Blood Count 3.96 M/uL Low 4.20-5.80 Hemoglobin 14.0 gm/dL 12.8-17.0 Hematocrit 40.6 % 38.0-48.0 Mean Cell Volume 102.5 fl High 80.0-96.0 Mean Corpuscular HGB 35.4 pg High 27.0-33.0 Mean Corpuscular HGB Conc 34.5 g/dL 31.7-36.0 Platelet Count 162 K/uL 150-400 Red Cell Distri Width %CV 14.2 % 11.6-15.8 Mean Platelet Volume 10.5 fL 6.6-10.6 Basic Metabolic Panel 09/10/2011 Glucose 117 mg/dL High 76-115 BUN 19 mg/dL 5-23 Creatinine 1.0 mg/dL 0.5-1.4 Glom Filtration Rate, Estimate >60 mL/min >60 If >60 mL/min >60 77 BUN/Creat 19.0 ratio Sodium 138 mmol/L 136-145 Potassium 4.4 mmol/L 3.5-5.1 Chloride 105 mmol/L 98-107 Carbon Dioxide 25 mEq/L 18-29 Anion Gap 12 mEq/L 8-16 Calcium 8.8 mg/dL 8.5-10.1 1 CELLULITIS 2 Note: Persistent reduction for 3 months or more in an eGFR <60 mL/min/1.73 m2 defines CKD. Patients with eGFR values >/=60 mL/min/1.73 m2 may also have CKD if evidence of persistent proteinuria is present. The original MDRD equation for estimated GFR is not valid for patients less than 18 years of age. Additional information may be found at www.kdoqi.org. 3 Instrument flagged sample for slide review. Less than 10% Bands seen, no other immature WBC's seen. RBC morphology essentially normal. Platelet estimate=NORMAL 4 Results consistent with previous results 5 INDICATED,SLIDE SENT Hematology Consultation Final Report Case# [id number] Final Diagnosis Peripheral blood smear: -Red blood cells show macrocytosis. -Platelets are within normal limits. -White blood cells are within normal limits. -No blasts or dysplastic granulocytes are identified. -Clinical correlation is suggested to rule out liver disease, alcoholism, and deficiency of folate or vitamin B12. GY 03/09/18 Gross Description Peripheral blood smear GANG SHMUEL,MD, Pathologist Reported 03/09/2018 at 11:06PM, Report electronically signed Performed at: [facility] [id number] [place] [address] 6 FEW LRG PLTS SEEN 7 Note: Persistent reduction for 3 months or more in an eGFR <60 mL/min/1.73 m2 defines CKD. Patients with eGFR values >/=60 mL/min/1.73 m2 may also have CKD if evidence of persistent proteinuria is present. The original MDRD equation for estimated GFR is not valid for patients less than 18 years of age. Additional information may be found at www.[email or web address]. 8 Elevated levels of HbA1c suggest the need for more aggressive treatment of glycemia. The [place] [employer] recommends that a primary goal of therapy should be a HbA1c of <7% and that physicians should re-evaluate the treatment regimen in patients with HbA1c values consistently >8%. 9 FALL LAST NIGHT, DIZZY, WOUND CARE ON LEGS 10 CELLULITIS 11 NO GROWTH: FINAL REPORT 12 NO GROWTH: FINAL REPORT 13 FALL LAST NIGHT, DIZZY, WOUND CARE ON LEGS 14 Instrument flagged sample for slide review. Less than 10% Bands seen, no other immature WBC's seen. RBC morphology essentially normal. Platelet estimate=NORMAL 15 Tests: CRP Instructions: 16 CELLULITIS 17 NO GROWTH: FINAL REPORT 18 NO GROWTH: FINAL REPORT 19 FALL LAST NIGHT, DIZZY, WOUND CARE ON LEGS 20 URINE, CLEAN CATCH 21 THERAPEUTIC INR RANGE: 2.0 - 3.0 DVT, Pulmonary embolus, prophylaxis against venous thrombosis or systemic embolization in high risk patients. 2.5 - 3.5 Mechanical heart valves 22 Note: Persistent reduction for 3 months or more in an eGFR <60 mL/min/1.73 m2 defines CKD. Patients with eGFR values >/=60 mL/min/1.73 m2 may also have CKD if evidence of persistent proteinuria is present. The original MDRD equation for estimated GFR is not valid for patients less than 18 years of age. Additional information may be found at www.kdoqi.org. 23 0.0 - 0.045 ng/mL: Normal 0.046 - 0.5 ng/mL: Suggestive 0.6 - 1.5 ng/mL: Consistent 24 RESULTS REPEATED 25 R73.03; Z68.37; Z00.01 26 Note: Persistent reduction for 3 months or more in an eGFR <60 mL/min/1.73 m2 defines CKD. Patients with eGFR values >/=60 mL/min/1.73 m2 may also have CKD if evidence of persistent proteinuria is present. The original MDRD equation for estimated GFR is not valid for patients less than 18 years of age. Additional information may be found at www.kdoqi.org. 27 Vitamin D deficiency has been defined by the [place] [employer] and an Endocrine Society practice guideline as a level of serum 25-OH vitamin D less than 20 ng/mL (1,2). The Endocrine Society went on to further define vitamin D insufficiency as a level between 21 and 29 ng/mL (2). 1. IOM ([place] [employer]). 2010. Dietary reference intakes for calcium and D. [place]: The National Academies Press. 2. Jessica MF, Jesus DUNN, Suzanne ORR, et al. Evaluation, treatment, and prevention of vitamin D deficiency: an Endocrine Society clinical practice guideline. JCEM. 2010; 96(7):1911-30. Performed at: RN - [facility] [address] [id number] Behavioral Health Counselor: Jacque Sotelo MD, Phone: [phone] 28 Reference Guidelines*: Desirable: ........... < 200 mg/dL Borderline High: ..... 200-239 mg/dL High: ................ >=240 mg/dL * The National Cholesterol Education Program (NCEP) 29 Reference Guidelines*: Normal: ............. < 150 mg/dL Borderline High: .... 150-199 mg/dL High: ............... 200-499 mg/dL Very High: .......... > 500 mg/dL * Source: National Cholesterol Education Program (NCEP) 30 Reference Guidelines*: Low HDL: ..... < 40 mg/dL Normal: ..... 40-60 mg/dL Desirable: ... > 60 mg/dL *The National Cholesterol Education Program(NCEP) 31 Reference Guidelines*: Optimal:........... <100 mg/dL Near Optimal....... 100-129 mg/dL Borderline High.... 130-159 mg/dL High............... 160-189 mg/dL Very High.......... >=190 mg/dL * Source: National Cholesterol Education Program (NCEP) 32 R73.03 33 Elevated levels of HbA1c suggest the need for more aggressive treatment of glycemia. The [place] Diabetes [employer] recommends that a primary goal of therapy should be a HbA1c of <7% and that physicians should re-evaluate the treatment regimen in patients with HbA1c values consistently >8%. 34 Note: Persistent reduction for 3 months or more in an eGFR <60 mL/min/1.73 m2 defines CKD. Patients with eGFR values >/=60 mL/min/1.73 m2 may also have CKD if evidence of persistent proteinuria is present. The original MDRD equation for estimated GFR is not valid for patients less than 18 years of age. Additional information may be found at www.kdoqi.org. 35 [id number] SEE RESULT BELOW Name: TYLER GRIGGS : [address]: Ysabel CHRISTIANSON Acct: [id number] Unit: [id number] AGE: 86 Location: [facility] Re09/23/16 SEX: M Status: REG REF SPEC: [id number] LINDY: 09/23/16-1534 [facility] DR: Ysabel CHRISTIANSON REQ: [id number] RECD: 09/23/16 STATUS: COMP _ SOURCE: THROAT SPDESC: ORDERED: Throat Culture COMMENTS: [id number] Procedure Result Reported Site Throat Culture Final 09/25/16- 1120 ML Organism 1 NORMAL CHRIS Quantity 3+ * ML - MAIN LAB ([facility]) . END OF REPORT * ML=Testing performed at Main Lab DEPARTMENT OF PATHOLOGY, [address] [place] [address] Jerrell Garcia M.D. Director [facility] # [id number] 37 R97.2 38 THIS ASSAY IS NOT INTENDED A CANCER SCREENING TEST The concentration of PSA in a given specimen, determined with assays from different manufacturers, can vary due to differences in assay methods and reagent specificity. Values obtained from different assay methods cannot be used interchangeably. Method: SpecifiedBy [place] Chemiluminescent immunoassay. 39 Z00.00,Z12.5 40 Note: Persistent reduction for 3 months or more in an eGFR <60 mL/min/1.73 m2 defines CKD. Patients with eGFR values >/=60 mL/min/1.73 m2 may also have CKD if evidence of persistent proteinuria is present. The original MDRD equation for estimated GFR is not valid for patients less than 18 years of age. Additional information may be found at www.kdoqi.org. 41 Reference Guidelines*: Desirable: ........... < 200 mg/dL Borderline High: ..... 200-239 mg/dL High: ................ >=240 mg/dL * The National Cholesterol Education Program (NCEP) 42 Reference Guidelines*: Normal: ............. < 150 mg/dL Borderline High: .... 150-199 mg/dL High: ............... 200-499 mg/dL Very High: .......... > 500 mg/dL * Source: National Cholesterol Education Program (NCEP) 43 Reference Guidelines*: Low HDL: ..... < 40 mg/dL Normal: ..... 40-60 mg/dL Desirable: ... > 60 mg/dL *The National Cholesterol Education Program(NCEP) 44 Reference Guidelines*: Optimal:........... <100 mg/dL Near Optimal....... 100-129 mg/dL Borderline High.... 130-159 mg/dL High............... 160-189 mg/dL Very High.......... >=190 mg/dL * Source: National Cholesterol Education Program (NCEP) 45 THIS ASSAY IS NOT INTENDED A CANCER SCREENING TEST The concentration of PSA in a given specimen, determined with assays from different manufacturers, can vary due to differences in assay methods and reagent specificity. Values obtained from different assay methods cannot be used interchangeably. Method: Siemens Dimension [place] Chemiluminescent immunoassay. 46 Performed at: [address] [id number] Behavioral Health Counselor: Jacque Sotelo MD, Phone: [phone] 47 Elevated levels of HbA1c suggest the need for more aggressive treatment of glycemia. The [place] Diabetes Association recommends that a primary goal of therapy should be a HbA1c of <7% and that physicians should re-evaluate the treatment regimen in patients with HbA1c values consistently >8%. 48 Note: Persistent reduction for 3 months or more in an eGFR <60 mL/min/1.73 m2 defines CKD. Patients with eGFR values >/=60 mL/min/1.73 m2 may also have CKD if evidence of persistent proteinuria is present. The original MDRD equation for estimated GFR is not valid for patients less than 18 years of age. Additional information may be found at www.kdoqi.org. 49 Performed at: RN - [facility] [address] [id number] Behavioral Health Counselor: Jacque Sotelo MD, Phone: [phone] 50 Note: Persistent reduction for 3 months or more in an eGFR <60 mL/min/1.73 m2 defines CKD. Patients with eGFR values >/=60 mL/min/1.73 m2 may also have CKD if evidence of persistent proteinuria is present. The original MDRD equation for estimated GFR is not valid for patients less than 18 years of age. Additional information may be found at www.kdoqi.org. 51 Because ethnic data is not always readily available, this report includes an eGFR for both -Americans and non- Americans. The National Kidney Disease Education Program (NKDEP) does not endorse the use of the MDRD equation for patients that are not between the ages of 18 and 70, are , have extremes of body size, muscle mass, or nutritional status, or are non- or non-. According to the National Kidney Foundation, irrespective of diagnosis, the stage of the disease is based on the level of kidney function: Stage Description GFR(mL/min/1.73 m(2)) 1 Kidney damage with normal or decreased GFR 90 2 Kidney damage with mild decrease in GFR 60-89 3 Moderate decrease in GFR 30-59 4 Severe decrease in GFR 15-29 5 Kidney failure <15 (or dialysis) 52 Note: Persistent reduction for 3 months or more in an eGFR <60 mL/min/1.73 m2 defines CKD. Patients with eGFR values >/=60 mL/min/1.73 m2 may also have CKD if evidence of persistent proteinuria is present. The original MDRD equation for estimated GFR is not valid for patients less than 18 years of age. Additional information may be found at www.kdoqi.org. 53 0.0 - 0.045 ng/mL: Normal 0.046 - 0.5 ng/mL: Suggestive 0.6 - 1.5 ng/mL: Consistent 54 FEW LRG PLTS SEEN 55 PER CANC REQ, NO SPECIMEN OBTAINED 56 OPERATION/PROCEDURE Excision DIAGNOSIS: "LESION, RIGHT FACE, EXCISION": ACTINIC KERATOSIS, HYPERTROPHIC TYPE. /clf GROSS Received in formalin labeled, "LESION, RIGHT FACE". It consists of an irregular, polypoid lesion received without orientation measuring 0.6 x 0.5 x 0.5 cm. The surface of the lesion has a mac pale, peppery appearance. The deep margin is inked blue. The specimen is bisected and submitted entirely in one block. /clf MICROSCOPIC Sections reveal a squamous epithelium overlying severely basophilically degenerated dermal collagen. There is a mild to moderate pleomorphism of large, irregular hyperchromatic nuclei with loss of polarity in the lower layers. The upper layers are characterized by parakeratosis. CLINICAL HISTORY Lesion on right face has been growing larger and bleeds on occasion. PRE OPERATIVE DIAGNOSIS Lesion on right face REVIEW CODE CODE: I Signed Electronically signed PATI MARRUFO MD 06/05/14 1418 57 A1c value between 5.7% and 6.4% is considered at increased risk for diabetes. A1c value greater than 6.5 % is considered essentially diagnostic for Type II diabetes. Current guidelines recommend a treatment goal of <7% for diabetic patients. This method will measure glycosylated hemoglobin variants, HbS, HbG, HbH, HbWayne, HbC, HbE, etc. Other hemoglobin- opathies may give incorrect results with this test. 58 Reference Range: Children and Adults: Baseline: Less than 1 Post Metyrapone: Single Dose Test: - 18 Multiple Dose Test: Performed at: [facility] - [email or web address] [address] [place] [id number] Behavioral Health Counselor: Lewis Marques MD, Phone: [phone] 59 Note: Persistent reduction for 3 months or more in an eGFR <60 mL/min/1.73 m2 defines CKD. Patients with eGFR values >/=60 mL/min/1.73 m2 may also have CKD if evidence of persistent proteinuria is present. The original MDRD equation for estimated GFR is not valid for patients less than 18 years of age. Additional information may be found at [email or web address]. 60 COLONY COUNT ! 10,000 - 20,000 CFU/ml Organism 1 ! MIXED URETHRAL CHRIS 61 Note: Persistent reduction for 3 months or more in an eGFR <60 mL/min/1.73 m2 defines CKD. Patients with eGFR values >/=60 mL/min/1.73 m2 may also have CKD if evidence of persistent proteinuria is present. The original MDRD equation for estimated GFR is not valid for patients less than 18 years of age. Additional information may be found at [email or web address]. 62 Note: Persistent reduction for 3 months or more in an eGFR <60 mL/min/1.73 m2 defines CKD. Patients with eGFR values >/=60 mL/min/1.73 m2 may also have CKD if evidence of persistent proteinuria is present. The original MDRD equation for estimated GFR is not valid for patients less than 18 years of age. Additional information may be found at [email or web address]. 63 Increased levels of BNP may also be seen in the following conditions: AMI (first 2-5 days) Hypertension with LVH Acute Dyspnea Pulmonary Embolism Obstructive Pulmonary Disease Hyperthyroidism Liver Cirrhosis with Ascites Renal Failure (acute or chronic) 64 0 - 0.5 ng/mL: No evidence of myocardial injury 0.6 - 1.4 ng/mL: Mild elevation, suggesting possible myocardial injury > 1.4 ng/mL: Consistent with myocardial injury 65 Anion gap measurement may be of limited value in the presence of any alkalosis, especially in a combined acid base disorder. . 66 A metabolite of Naproxen, O-desmethylnaproxen, has been shown to interfere with the Jendrassik-Joseph method for measuring total bilirubin. Samples from patients who have taken Naproxen have shown spurious elevation in total bilirubin levels. 67 Because ethnic data is not always readily available, this report includes an eGFR for both -Americans and non- Americans. The National Kidney Disease Education Program (NKDEP) does not endorse the use of the MDRD equation for patients that are not between the ages of 18 and 70, are , have extremes of body size, muscle mass, or nutritional status, or are non- or non-. According to the National Kidney Foundation, irrespective of diagnosis, the stage of the disease is based on the level of kidney function: Stage Description GFR(mL/min/1.73 m(2)) 1 Kidney damage with normal or decreased GFR 90 2 Kidney damage with mild decrease in GFR 60-89 3 Moderate decrease in GFR 30-59 4 Severe decrease in GFR 15-29 5 Kidney failure <15 (or dialysis) 68 CHOLESTEROL INTERPRETATION: Desirable: Less than 200 MG/DL Borderline-High Risk: 200-239 MG/DL High-Risk: 240 MG/DL and over 69 HDL INTERPRETATION: Undesirable: High Risk: Less than 40 MG/DL Desirable: Low Risk: Greater than 60 MG/DL 70 LDL INTERPRETATION: Low Risk Optimal Level: LDL Less than 100 MG/DL Near or Above Optimal: LDL 100-129 MG/DL Borderline High Risk: LDL 130-159 MG/DL High Risk: LDL 160-189 MG/DL Very High Risk: LDL Greater than 189 MG/DL 71 REFERENCE RANGE ADULT MALES 175-781 NG/DL ADULT FEMALES 10-75 NG/DL NOTE: PEDIATRIC REFERENCE RANGES HAVE NOT BEEN ESTABLISHED FOR THIS ASSAY. PLEASE REFER TO AN EXTERNAL SOURCE FOR AN ACCURATE REFERENCE RANGE. . 72 ADULT MCV GREATER THAN 105 FL INCUBATED 1/2 HR AT 37C WITHOUT SIGNIFICANT CHANGE. 73 THERAPEUTIC TARGET FOR THE TREATMENT OF DIABETES MELLITUS PATIENTS IS <7% HBA1C, AND IN SELECTIVE PATIENTS <6.0%. PLEASE REFER TO [employer] DIABETIC CARE GUIDELINES FOR FURTHER INFORMATION. 74 Test Performed by: [place] [address] Car Wash Supervisor: Bob Garcia III, M.D. 75 -- REFERENCE VALUE -- 25-HYDROXY D TOTAL (D2+D3) Optimum levels in the normal population are 25-80 Test Performed by: [place] [address] [employer] Supervisor: Bob Garcia III, M.D. 76 Note: Persistent reduction for 3 months or more in an eGFR <60 mL/min/1.73 m2 defines CKD. Patients with eGFR values >/=60 mL/min/1.73 m2 may also have CKD if evidence of persistent proteinuria is present. The original MDRD equation for estimated GFR is not valid for patients less than 18 years of age. Additional information may be found at www.[email or web address]. 77 Note: Persistent reduction for 3 months or more in an eGFR <60 mL/min/1.73 m2 defines CKD. Patients with eGFR values >/=60 mL/min/1.73 m2 may also have CKD if evidence of persistent proteinuria is present. The original MDRD equation for estimated GFR is not valid for patients less than 18 years of age. Additional information may be found at [email or web address]. Procedures Date CPT Code Description Status 05/08/2016 25984 EKG Completed 05/24/2015 71638 Audiogram, Screen Only Pure Tone Completed 06/01/2014 54480 Exc.Benign Lesion 0.6 To 1.0 CM Completed 05/26/2014 98403 Cerumen Removal w/instrument Completed 05/17/2014 18452 Audiogram, Screen Only Pure Tone Completed 01/27/2014 34599 Therapeutic prophylactic inject Completed 01/18/2014 02777 Therapeutic prophylactic inject Completed 01/02/2014 21720 EKG Completed 12/05/2013 Colonoscopy Completed 05/16/2013 81018 Hearing Test Completed 10/13/2012 56492 Hearing Test Completed 09/25/2008 64650 Cerumen Removal w/instrument Completed 08/28/2008 50703 Injection Administration Therapeutic, Proph,Or Completed Diagnosti Subcu/Mu Encounters Type Date Location Provider CPT E/M Dx Office Visit 03/31/2018 2:00p [place] [address] L03.90 L60.9 M79.674 I87.2 M10.9 Office Visit 03/22/2018 2:45p Main Office Sincere Metcalf M.D. 34558 L03.115 Office Visit 02/24/2018 9:45a Main Office Sincere Metcalf M.D. 92858 L03.115 Office Visit 02/19/2018 9:45a Main Office Sincere Metcalf M.D. 25903 L03.115 Office Visit 11/16/2017 1:45p Main Office Sincere Metcalf M.D. 20245 M25.512 Office Visit 10/08/2017 11:15a Main Office Sincere Metcalf M.D. 78873 M79.1 E86.0 Office Visit 09/24/2017 3:15p Main Office Sincere Metcalf M.D. 84589 E86.0 Office Visit 06/17/2017 10:30a Main Office Sincere Metcalf M.D. 10289 Z00.01 M54.17 Z95.0 E11.621 Z68.37 Z23 Office Visit 10/27/2016 10:45a Main Office Sincere Metcalf M.D. 57139 R73.03 B35.6 Office Visit 09/23/2016 3:15p [place] [address] J06.9 J02.9 Office Visit 08/13/2016 1:30p Main Office Sincere Metcalf M.D. 07728 L89.602 M54.17 Office Visit 08/06/2016 1:15p Main Office Sincere eMtcalf M.D. 60812 L89.602 Office Visit 07/24/2016 1:45p Main Office Sincere Metcalf M.D. 63517 M48.06 M54.17 Office Visit 06/09/2016 11:30a Main Office Sincere Metcalf M.D. 99137 Z23 M48.06 R97.2 Z23 Office Visit 05/08/2016 9:15a Main Office Sincere Metcalf M.D. 72112 M54.2 R61 Z95.0 Office Visit 05/01/2016 2:30p Main Office Sincere Metcalf M.D. 89263 M48.06 Office Visit 04/17/2016 3:30p Main Office Sincere Metcalf M.D. 36861 R42 M48.06 Office Visit 02/11/2016 11:00a [place] [address] M10.9 R79.9 M19.90 K06.0 K59.00 Office Visit 11/19/2015 1:00p Main Office Sincere Metcalf M.D. 10578 M62.830 Office Visit 10/29/2015 11:15a Main Office Sincere Metcalf M.D. 48748 S90.512D R60.0 Office Visit 10/11/2015 11:00a Main Office Sincere Metcalf M.D. 70931 S90.512A M79.672 R60.0 Office Visit 09/26/2015 4:30p Main Office Sincere Metcalf M.D. 56715 M79.672 R60.0 S90.512A Office Visit 09/07/2015 9:45a Main Office Sincere Metcalf M.D. 31807 M79.672 R60.0 Office Visit 08/15/2015 10:30a Main Office Sincere Metcalf M.D. 11369 M10.9 Office Visit 05/24/2015 1:00p Main Office Sincere Metcalf M.D. 47897 V70.0 V76.44 V76.41 278.00 724.02 112.3 V04.81 Office Visit 02/19/2015 11:30a Main Office Sincere Metcalf M.D. 17255 724.5 724.02 278.00 Office Visit 01/18/2015 1:30p [place] [address] 724.5 724.02 278.00 Office Visit 01/01/2015 11:00a Main Office Sincere Metcalf M.D. 25499 386.30 Office Visit 12/11/2014 10:45a Main Office Sincere Metcalf M.D. 35939 780.4 Office Visit 08/31/2014 10:45a Main Office Sincere Metcalf M.D. 67936 427.31 Office Visit 05/17/2014 10:00a Main Office Sincere Metcalf M.D. 26933 V70.0 380.4 274.9 278.00 V06.1 Office Visit 05/04/2014 9:00a Main Office Sincere Metcalf M.D. 17451 274.9 278.00 Office Visit 04/12/2014 10:30a Main Office Sincere Metcalf M.D. 72444 724.5 278.00 Office Visit 02/03/2014 10:15a [place] [address] 715.00 682.9 Office Visit 01/27/2014 9:00a [place] [address] 274.9 715.00 682.6 Office Visit 01/18/2014 3:00p [place] [address] 682.9 Office Visit 01/09/2014 11:15a [place] [address] 682.9 274.9 607.84 782.3 V58.61 Office Visit 01/02/2014 10:30a [place] [address] 333.1 782.3 607.84 780.60 278.00 Office Visit 10/13/2013 9:15a Main Office Sincere Metcalf M.D. 48136 333.1 782.3 Office Visit 10/13/2012 1:15p [place] [address] 368.00 366.9 427.31 780.57 726.19 V70.0 Office Visit 07/15/2012 11:15a [place] [address] 368.00 366.9 Office Visit 04/02/2012 11:00a Main Office Sincere Metcalf M.D. 25496 682.3 Office Visit 03/19/2012 9:30a Main Office Sincere Metcalf M.D. 85540 682.3 V03.82 Office Visit 08/28/2011 10:30a [place] [address] V58.32 Office Visit 07/14/2011 11:30a [place] [address] 427.31 Office Visit 12/31/2009 2:15p [place] [address] V58.61 724.02 Office Visit 09/25/2008 1:15p [place] [address] 380.4 Office Visit 09/22/2008 12:00p [place] [address] 386.30 380.4 Office Visit 09/04/2008 1:00p [place] [address] 682.3 Office Visit 08/29/2008 12:00p [place] [address] 682.3 Office Visit 08/28/2008 11:15a [place] [address] 274.9 272.4 427.31 682.3 Plan of Care Future Appointment(s):04/22/2018 2:45 pm - Sincere Metcalf M.D. at Main Govxsc6306/18/2018 11:00 am - Sincere Metcalf M.D. at Main Tmkhje3803/31/2018 - Ys[facility] PAL03.90 Cellulitis, unspecifiedNew Medication:Levofloxacin 750 mgNew Labs:Esr Sedimentation RateUric AcidCBC Auto DiffBasic Metabolic PanelBasic Metabolic PanelUric AcidSedimentation RateCBS W/Automated DiffFollow up:gfnzenfkH87.9 Nail disorder, fgvmapqcbijK63.674 Pain in right toe(s)I87.2 Venous insufficiency (chronic) (peripheral)M10.9 Gout, unspecified
[2018-04-08 10:29] VITALS: BP 103/60
--- NOTE | 2018-04-08 10:49 | UC ---
Neck Pain HPI - HPI Summary HPI Summary: 87 year old with a fib on blood thinner fell last night about 9 pm. Getting out of a chair he fell backwards and hit the ground and hit back of head. Now with neck pain when he moves the neck. no numbness or pain or other symptoms of concern. no bleeding. no headache. no loss of vision. no further falls. acting normal. no nausea or vomiting. Patient was fine after the fall and slept fine. He was able to dress himself this AM and no major pain but some right sided neck pain with turning. - History of Current Complaint Chief Complaint: UCBackPain Stated Complaint: S/P FALL-NECK PAIN Time Seen by Provider: 04/08/18 09:50 Hx Obtained From: Patient, Family/Consultant [employer] Mechanism Of Injury: Blunt Trauma Onset/Duration: Sudden Onset Pain Intensity: 5 - Allergies/Home Medications Allergies/Adverse Reactions: Allergies Allergy/AdvReac Type Severity Reaction Status Date / Time latex Allergy Unknown hives and Verified 04/08/18 10:03 swelling naproxen [From Aleve] Allergy Unknown hives and Verified 04/08/18 10:04 swelling Home Medications: Home Medications Allopurinol TAB* [Zyloprim 300 MG TAB*] 300 mg PO DAILY 04/08/18 [History Confirmed 04/08/18] Atorvastatin* [Lipitor*] 40 mg PO DAILY 04/08/18 [History Confirmed 04/08/18] Cholecalciferol TAB* [Vitamin D TAB*] 1,000 unit PO DAILY 04/08/18 [History Confirmed 04/08/18] Docusate CAP* [Colace Cap*] 100 mg PO DAILY 04/08/18 [History Confirmed 04/08/18 ] Flaxseed Oil 1,200 mg PO BID 04/08/18 [History Confirmed 04/08/18] Gabapentin CAP(*) [Neurontin 300 CAP(*)] 300 mg PO TID 04/08/18 [History Confirmed 04/08/18] Glucosam/Chondr/Collagn/Hyalur [Glucosamine & Chondroitin Cap] 04/08/18 [ History] Lutein/Zeaxanthin [Ocuvite Lutein 25 25-5 mg] 1 cap PO DAILY 04/08/18 [History Confirmed 04/08/18] Polyethylene Glycol 3350* [Miralax*] 17 gm PO DAILY 04/08/18 [History Confirmed 04/08/18] Primidone TAB(*) [Mysoline TAB(*)] 50 mg PO BID 04/08/18 [History Confirmed ] Rivaroxaban TAB(*) [Xarelto 20 mg] 20 mg PO DAILY 04/08/18 [History Confirmed ] Spironolactone TAB* [Aldactone TAB*] 25 mg PO DAILY 04/08/18 [History Confirmed 04/08/18] celeCOXIB CAP* [CeleBREX CAP*] 200 mg PO DAILY 04/08/18 [History Confirmed 04/08] levoFLOXacin [Levaquin] 750 mg PO DAILY 04/08/18 [History Confirmed 04/08/18] PMH/Surg Hx/FS Hx/Imm Hx Previously Healthy: Yes Endocrine History: Dyslipidemia Cardiovascular History: Atrial Fibrillation - Surgical History Surgical History: Yes Surgery Procedure, Year, and Place: [facility]EMAKER. BACK SURGERY. APPENDECTOMY. T& A - Family History Known Family History: Positive: None - Social History Occupation: Retired Alcohol Use: Rare Substance Use Type: None Smoking Status (MU): Former Smoker Type: Cigarettes When Did the Patient Quit Smoking/Using Tobacco: AGE 29 Review Of Systems Musculoskeletal: Positive: Arthralgia Neurological: Positive: Other - fall All Other Systems Reviewed And Are Negative: Yes Physical Exam - Summary Physical Exam Summary: talking in full sentences Triage Information Reviewed: Yes Appearance: Well-Appearing, Well-Nourished, Pain Distress - mild neck pain Vital Signs: Initial Vital Signs Temp 96.8 F 04/08/18 10:11 Pulse 65 04/08/18 10:11 Resp 18 04/08/18 10:11 BP 103/60 04/08/18 10:11 Pulse Ox 100 04/08/18 10:11 Vital Signs Reviewed: Yes Eye Exam: Normal Eyes: Positive: Conjunctiva Clear ENT: Positive: Hearing grossly normal Neck exam: Other - [place] collar on Respiratory: Positive: Chest non-tender, Lungs clear, Normal breath sounds Cardiovascular: Positive: RRR, No Murmur Musculoskeletal: Positive: No Edema, ROM Limited @ - in collar Neurological Exam: Normal Psychological Exam: Normal Skin Exam: Normal Diagnostics - Laboratory Diagnostic Studies Completed/Ordered: CT scan : type 2 non displaced odontoid fracture Neck Pain Course/Dx - Course Course Of Treatment: CT shows fracture non displaced odonoid process. Called [facility] at 11:45 am awaiting to discuss with surgeon. 12:45pm : called surgeon again -- no return call yet, they will page him again in the OR but in the mean time appt made for tomorrow AM at 9:40 am with the office. 1:15 pm : collar on and patient leaving to f/u tommorrow with surgeon and go to ED if any concerns. No return call from surgeon yet. Patient and daughter anxious to leave at this time and want to go home to rest . Spoke with daughter who is aware of plan and aware of risks of Tyler's injury. They declined going to the ED as they aware that is the best way to potentially be seen by [facility] today. Of note we tried numerous different collars to immobilize the patient and he could not tolerate them. He states he willl not wear the [place] collar. we called numerous locations for DME / [place] collar and nothing available today locally or in [place]. We combined the soft collar with additional support and the patient states he will try to wear that. He is aware if not wearing brace to immobilize his neck his Sx can worsen leading to possible paralysis / . - Differential Dx/Diagnosis Differential Dx/HQI/PQRI: Arthritis, Cervical Fracture, Intracranial Bleed, Sprain, Trauma Provider Diagnoses: non displaced odontoid fracture after fall Discharge - Sign-Out/Discharge Documenting (check all that apply): Patient Departure - Discharge Plan Condition: Fair Disposition: HOME Patient Education Materials: Cervical Fracture (ED), [place] Collar (ED) Referrals: Sincere Metcalf MD [Primary Care Provider] - 4 Days Angel Malave MD [Medical Doctor] - 1 Day (tomorrow at 9:40 AM ) Additional Instructions: You have a fracture to the odontoid process in the cervical spine. If your pain worsens, or you have numbness in the hands / arms then go to the Emergency Room . Please wear your neck brace to offer stability to the neck to prevent worsening of your condition. You also have a script for a [place] collar to use as well. - Billing Disposition and Condition Condition: FAIR Disposition: Home
--- NOTE | 2018-04-08 11:39 | RAD ---
HISTORY: pain after fall / on blood thinner COMPARISONS: None TECHNIQUE: Multiple contiguous axial CT scans were obtained of the head without intravenous contrast. FINDINGS: HEMORRHAGE/INFARCT: There is no hemorrhage or acute infarct. MASSES/SHIFT: There is no mass or shift. EXTRA-AXIAL SPACES: There are no extra-axial fluid collections. SULCI AND VENTRICLES: There is diffuse and proportional enlargement of the sulci and ventricles. CEREBRUM: There are no focal parenchymal abnormalities. BRAINSTEM: There are no focal parenchymal abnormalities. CEREBELLUM: There are no focal parenchymal abnormalities. VESSELS: The vessels are grossly normal. PARANASAL SINUSES: There is polypoid mucosal thickening of the right maxillary sinus. ORBITS: The orbits are unremarkable. BONES AND SOFT TISSUE: No bone or soft tissue abnormalities are noted. OTHER: None IMPRESSION: NO ACUTE INTRACRANIAL PATHOLOGY. MODERATE SINUS MUCOSAL INFLAMMATORY DISEASE, WITHOUT AIR-FLUID LEVEL TO SUGGEST ACUTE SINUSITIS.
--- NOTE | 2018-04-08 11:43 | RAD ---
HISTORY: fall on blood thinner, neck pain COMPARISONS: None TECHNIQUE: Multiple contiguous axial CT scans were obtained of the cervical spine without intravenous contrast, with coronal and sagittal multiplanar reformations. FINDINGS: BRAIN: The visualized brain is unremarkable CENTRAL CANAL: Evaluation of the central canal is limited on CT technique; however, there is no obvious canalicular mass or epidural hemorrhage. ALIGNMENT: The alignment is normal, without subluxation or dislocation. VERTEBRAL BODIES: There is linear lucency consistent with a type II fracture of the base of the odontoid process, without displacement.. There is multilevel bridging anterolateral marginal osteophyte formation. JOINTS: There is diffuse uncovertebral and facet osteoarthritis. There is osteoarthritis of the lateral axial articulation. MUSCULATURE: Unremarkable INTERVERTEBRAL DISCS: There is diffuse loss of intervertebral disc height. AXIAL IMAGES: C2-C3: There is right greater than the left uncovertebral and facet arthritis. There is severe right neural foraminal narrowing. There is no osseous central canal stenosis. C3-C4: There is bilateral uncovertebral and facet hypertrophy. There is severe right and mild left neural foraminal narrowing. There is mild narrowing of the central canal. C4-C5: There is right greater than left uncovertebral and facet osteoarthritis. There is moderate right neuroforaminal narrowing. There is no osseous central canal stenosis. C5-C6: There is bilateral uncovertebral hypertrophy. There is severe left neuroforaminal narrowing. There is no osseous central canal stenosis.. C6-C7: There is bilateral uncovertebral. There is moderate bilateral neuroforaminal narrowing. There is no osseous central canal stenosis. C7-T1: There is bilateral uncovertebral hypertrophy. There is moderate bilateral neuroforaminal narrowing. There is no osseous central canal stenosis. SOFT TISSUES: There is calcification of the carotid bifurcations. OTHER: Again noted is polypoid mucosal thickening of the right maxillary sinus. IMPRESSION: 1. NONDISPLACED TYPE II FRACTURE OF THE BASE OF THE ODONTOID PROCESS. 2. DEGENERATIVE DISC DISEASE AND OSTEOARTHRITIS DESCRIBED ABOVE. PRELIMINARY FINDINGS WERE DISCUSSED WITH DR. BOTELLO IN THE URGENT CARE AT APPROXIMATELY 11:38 AM ON APRIL 08, 2018.
[2018-04-08] MEDS ORDERED: Acetaminophen TAB* 325 MG PO ONE (11:58)
== END 2018-04-08 13:24 | disposition home or self-care (01) ==
LOC: UCCORT 09:07
DX: S12.121A Other nondisplaced dens fracture, initial encounter for closed fracture (principal); W07.XXXA Fall from chair, initial encounter; Y93.89 Activity, other specified; Y92.009 Unspecified place in unspecified non-institutional (private) residence as the place of occurrence of the external cause; I48.91 Unspecified atrial fibrillation; Z79.01 Long term (current) use of anticoagulants; Z88.6 Allergy status to analgesic agent; E78.5 Hyperlipidemia, unspecified; Z95.0 Presence of cardiac pacemaker; Z87.891 Personal history of nicotine dependence
CPT/HCPCS: 70450; 72125; 81003; 99213; A9270-GY; G0463

== ENCOUNTER → 2018-05-11 15:05 | Day surgery (SDC) | payer MEDICARE ==
[2018-05-10 18:15] VITALS: BP 109/56
--- NOTE | 2018-05-11 02:54 | OP ---
DATE OF OPERATION: 05/10/18 - [facility] DATE OF : [birth year] ATTENDING SURGEON: Isaias Waller MD CAFE AIDE: Alayna Singh PA-C PRE-OP DIAGNOSIS: Chronic osteomyelitis, right distal great toe. POST-OP DIAGNOSIS: Chronic osteomyelitis, right distal great toe. OPERATIVE PROCEDURE: Right first MTP joint disarticulation. DESCRIPTION OF PROCEDURE: The patient was taken to the operative room, where ankle Esmarch was applied as well as local anesthetic. Transverse elliptical incision was made basically over the proximal phalanx of the great toe. We dissected proximally to the MTP joint where disarticulation was performed. The soft tissues at this area were edematous. There was some cloudy fluid but no gross purulence. Cultures were sent. We irrigated this thoroughly with a liter of saline, local hemostasis obtained and then dorsal to plantar closure of 0 Vicryl, interrupted nylon for the skin and a compression dressing applied. The toe was delivered to pathology. [id number]/[facility] #: [id number] MTDD
[~2018-05-11 15:05] MED LIST: Acetaminophen TAB* 325 MG ONE; Buffered Lidocaine 0.9% SYRIN* 5 ML/SYR SYRINGE INTRADERM ONE; Dexamethasone TAB* 4 MG ONE; Dexamethasone TAB* 4 MG PO ONE; DiMENhydriNATE IV* 50 MG/ML VIAL IV PUSH PRN; Famotidine IV* 10 MG/ML 2 ML (20 mg) IV ONE; Famotidine IV* 10 MG/ML 2 ML (20 mg) ONE; KETAMINE HCL* 50 MG/ML 10 ML VIAL ONE; Lidocaine 2% PF* 10 ML AMP ONE; Midazolam* 1 MG/ML 2 ML VIAL (2 MG) ONE; Midazolam* 1 MG/ML 5 ML VIAL (5 MG) ONE; Morphine INJ* 2 MG/ML 1 ML SYRINGE (TWO MG - NEW SYRINGE VERSION) IV PRN; Naloxone* 0.4 MG/ML 1 ML VIAL IV PRN; Ondansetron INJ* 2 MG/ML VIAL ONE; Ondansetron ODT TAB* 4 MG ONE; PROCHLORPERAZINE INJ 5 MG/ML 2 ML VIAL IV PRN; Propofol* 500 MG/50 ML BTL ONE; ceFAZolin 2 GM PREMIX (*) 2 GM/50 ML BAG IVPB ONE; fentaNYL* 50 MCG/ML 2 ML VIAL (100 MCG VIAL) IV PRN; fentaNYL* 50 MCG/ML 2 ML VIAL (100 MCG VIAL) ONE
== END | disposition home or self-care (01) ==
LOC: OR 15:05
PROVIDERS: ATTEND Orthopaedic Surgery
DX: M86.671 Other chronic osteomyelitis, right ankle and foot (principal); E78.5 Hyperlipidemia, unspecified; I10 Essential (primary) hypertension; I48.91 Unspecified atrial fibrillation; Z95.0 Presence of cardiac pacemaker; Z91.040 Latex allergy status; Z91.048 Other nonmedicinal substance allergy status; Z87.891 Personal history of nicotine dependence
CPT/HCPCS: 87070; 87073; 87077; 87186; 87205; A9270-GY; J0690; J2001; J2250; J2704; J3010; J8540